=== PATIENT | male | born 1945 | race Caucasian/White ===

== ENCOUNTER 2018-01-08 14:44 | Emergency (ER) | payer MEDICARE, BC ==
[2018-01-08] MEDS ORDERED: Levofloxacin 500 MG Tab PO ONE (14:45)
[2018-01-08] MEDS ORDERED: Albuterol/Ipratropium 3.0-0.5 MG/3 ML Neb Soln INH ONE (14:45)
[2018-01-08] MEDS ORDERED: Albuterol/Ipratropium 3.0-0.5 MG/3 ML Neb Soln NEB ONE (15:47)
[2018-01-08] MEDS ORDERED: methylPREDNISolone Sodium Succinate 40 MG/1 ML SDV IM ONE (16:31)
[2018-01-08] MEDS ORDERED: Levofloxacin 500 MG Tab ONE (16:45)
[2018-01-08] MEDS ORDERED: Albuterol/Ipratropium 3.0-0.5 MG/3 ML Neb Soln ONE (16:45)
--- NOTE | 2018-01-08 17:32 | EDM.PDOC ---
ED HPI GENERAL MEDICAL PROBLEM - General Chief Complaint: Respiratory Problem Stated Complaint: HARD TO BREATH,COLD [id number] Time Seen by Provider: 01/08/18 15:00 - History of Present Illness INITIAL COMMENTS - FREE TEXT/NARRATIVE: Richard is a 72-year-old man who comes in with a little over 1 week history of severe cough. He has been struggling with recurrent malignancies, as well as frequent bronchitis over the past few years. 8 days ago, he was seen at the local urgent care clinic, and was given a prescription for doxycycline for 7 days. He states that he really has not felt any better since taking this. He does tell me that he gets bronchitis fairly frequently and when he does, it becomes quite severe. He states that over the last 24 hours he has felt fairly short of breath, as well as some fevers and chills. - Related Data Allergies Allergy/AdvReac Type Severity Reaction Status Date / Time No Known Allergies Allergy Verified 01/08/18 14:57 Home Meds: Home Meds Acetaminophen [Tylenol] 650 mg PO ASDIRECTED PRN 01/08/18 [History] Albuterol/Ipratropium [DuoNeb 3.0-0.5 MG/3 ML] 3 ml NEB Q4H PRN #1 box 01/08/18 [Rx] Levofloxacin [Levaquin] 500 mg PO DAILY #7 tab 01/08/18 [Rx] Lisinopril 1 tab PO DAILY 01/08/18 [History] Methotrexate Sodium [Methotrexate] 5 tab PO ASDIRECTED 01/08/18 [History] Metoprolol Succinate [Toprol Xl] 75 mg PO DAILY 01/08/18 [History] Sertraline HCl 50 mg PO DAILY 01/08/18 [History] Social & Family History - Tobacco Use Smoking Status *Q: Never Smoker Second Hand Smoke Exposure: No ED ROS GENERAL - Review of Systems Review Of Systems: ROS reveals no pertinent complaints other than HPI. ED EXAM, GENERAL - Physical Exam Exam: See Below Free Text/Narrative:: General: Richard is a pleasant 72-year-old man in no acute distress. O2 sat slightly decreased at 93% on room air, but no other signs of respiratory distress, no tachypnea or accessory muscle use. Ears: Canals are patent, tympanic membranes appear normal Oropharynx: Clear, no exudates or petechia noted Neck: Supple, no lymphadenopathy Lungs: Significant expiratory wheezing bilaterally with some coarse breath sounds centrally PA and lateral chest x-ray does show possible small right lower and middle lobe pneumonia He was given a DuoNeb nebulizer treatment prior to his x-ray, this did help significantly with his symptoms. Nasopharyngeal swab for influenza A and B was negative Course - Vital Signs Last Recorded V/S: Last Vital Signs Temp 37.8 C 01/08/18 14:51 Pulse 105 H 01/08/18 15:54 Resp 20 01/08/18 14:51 BP 137/69 01/08/18 14:51 Pulse Ox 93 L 01/08/18 14:51 - Orders/Labs/Meds Meds: Medications Discontinued Medications Generic Name Dose Route Start Last Admin Trade Name Freq PRN Reason Stop Dose Admin Albuterol/Ipratropium 3 ml 01/08/18 15:47 01/08/18 15:56 Duoneb 3.0-0.5 Mg/3 Ml NEB 01/08/18 15:48 3 ml ONETIME ONE Administration Albuterol/Ipratropium Confirm 01/08/18 16:45 Duoneb 3.0-0.5 Mg/3 Ml Administered 01/08/18 16:46 Dose 9 ml .ROUTE .STK-MED ONE Albuterol/Ipratropium 9 ml 01/08/18 14:45 Duoneb 3.0-0.5 Mg/3 Ml INH 01/08/18 14:46 .STK-MED ONE Levofloxacin Confirm 01/08/18 16:45 Levaquin Administered 01/08/18 16:46 Dose 500 mg .ROUTE .STK-MED ONE Levofloxacin 500 mg 01/08/18 14:45 Levaquin PO 01/08/18 14:46 .STK-MED ONE Methylprednisolone Sodium Succinate 80 mg 01/08/18 16:31 01/08/18 16:40 Solu-Medrol IM 01/08/18 16:32 80 mg ONETIME ONE Administration Departure - Departure Time of Disposition: 17:30 Disposition: Home, Self-Care 01 Clinical Impression: Acute exacerbation of chronic bronchitis - Discharge Information Prescriptions: Albuterol/Ipratropium [DuoNeb 3.0-0.5 MG/3 ML] 3 ml NEB Q4H PRN #1 box PRN Reason: Dyspnea Levofloxacin [Levaquin] 500 mg PO DAILY #7 tab Instructions: Acute Bronchitis, Adult, [id number] Referrals: PCP,None [Primary Care Provider] - Forms: ED Department Discharge - Problem List & Annotations (1) Acute exacerbation of chronic bronchitis SNOMED Code(s): 359954062 Code(s): J20.9 - ACUTE BRONCHITIS, UNSPECIFIED; J42 - UNSPECIFIED CHRONIC BRONCHITIS Status: Acute Priority: High Annotation/Comment:: Just from his history, it sure does sound like Richard has chronic obstructive disease. I did discuss with him that he may want to bring this up with his primary physician, as there are at home breathing inhalers that could be had to prevent these exacerbations in the future. - Problem List Review Problem List Initiated/Reviewed/Updated: Yes - Assessment/Plan Plan: 1. Levaquin, 500 mg twice a day for 7 days 2. He received 80 mg of IM methylprednisolone 1 now here in the ER 3. We did arrange for him to have an at-home nebulizer treatment with DuoNeb's to be used every 4-6 hours as needed. He will follow up immediately in the ER or clinic if he worsens, or is not improving.
== END 2018-01-08 17:13 ==
LOC: DL.ED 14:44
DX: J20.9 Acute bronchitis, unspecified (principal); J42 Unspecified chronic bronchitis; Z79.899 Other long term (current) drug therapy
CPT/HCPCS: 71046; 87804; 94640; 96372; 99285; J2920; A9270-GY

== ENCOUNTER 2019-10-18 21:41 | Emergency (ER) | payer MEDICARE, BC ==
--- NOTE | 2019-10-19 02:00 | EDM.PDOC ---
ED HPI GENERAL MEDICAL PROBLEM - General Chief Complaint: Respiratory Problem Stated Complaint: DIFFICULTY BREATHING CONGESTED Time Seen by Provider: 10/19/19 01:30 Source of Information: Reports: Patient, RN - History of Present Illness INITIAL COMMENTS - FREE TEXT/NARRATIVE: 74-year-old male who presents to the ER with complaints of congestion and cough 5 days. Patient reports cough is productive with green sputum. He denies any fevers but admits to intermittent chills. Patient reports a history of lung cancer that has been treated with chemotherapy times 3. Patient also reports a history of pneumonia. He admits to mild shortness of breath with exertion. He denies any palpitations ,chest pain, leg swelling or cold at this time. Patient reports fatigue all day prior to ER visit. He has not tried anything for symptoms. He does not smoke. Treatments [facility]: Reports: Other (see below) Other Treatments [facility]: nasal washings - Related Data Allergies Allergy/AdvReac Type Severity Reaction Status Date / Time No Known Allergies Allergy Verified 10/18/19 22:41 Home Meds: Home Meds Acetaminophen [Tylenol] 650 mg PO ASDIRECTED PRN 01/08/18 [History] Albuterol/Ipratropium [DuoNeb 3.0-0.5 MG/3 ML] 3 ml NEB Q4H PRN #1 box 01/08/18 [Rx] Lisinopril 1 tab PO DAILY 01/08/18 [History] Methotrexate Sodium [Methotrexate] 5 tab PO ASDIRECTED 01/08/18 [History] Metoprolol Succinate [Toprol Xl] 75 mg PO DAILY 01/08/18 [History] Sertraline HCl 50 mg PO DAILY 01/08/18 [History] Past Medical History HEENT History: Reports: Hard of Hearing, Impaired Vision Other HEENT History: wears glasses Cardiovascular History: Reports: Hypertension Respiratory History: Reports: Other (See Below) Other Respiratory History: URI Gastrointestinal History: Reports: None Genitourinary History: Reports: None Musculoskeletal History: Reports: None Psychiatric History: Reports: Anxiety Oncologic (Cancer) History: Reports: Non-Hodgkin's Lymphoma Other Oncologic History: last chemo was in 2010 Dermatologic History: Reports: Eczema Social & Family History - Family History Family Medical History: Noncontributory - Tobacco Use Smoking Status *Q: Unknown Ever Smoked - Caffeine Use Caffeine Use: Reports: Soda - Recreational Drug Use Recreational Drug Use: No ED ROS GENERAL - Review of Systems Review Of Systems: Comprehensive ROS is negative, except as noted in HPI. ED EXAM, GENERAL - Physical Exam Exam: See Below General Appearance: Alert, No Apparent Distress Eye Exam: Bilateral Eye: PERRL Ears: Normal External Exam, Normal Canal, Hearing Grossly Normal, Normal TMs Nose: Normal Inspection, Normal Mucosa, No Blood Throat/Mouth: Normal Inspection, Normal Lips, Normal Teeth, Normal Gums, Normal Oropharynx, Normal Voice, No Airway Compromise Head: Atraumatic, Normocephalic Neck: Normal Inspection, Supple, Non-Tender, Full Range of Motion Respiratory/Chest: No Respiratory Distress, Lungs Clear, Normal Breath Sounds, No Accessory Muscle Use, Chest Non-Tender Cardiovascular: Normal Peripheral Pulses, Regular Rate, Rhythm, No Edema, No Gallop, No JVD, No Murmur, No Rub GI/Abdominal: Normal Bowel Sounds, Soft, Non-Tender, No Organomegaly, No Distention, No Abnormal Bruit, No Mass Extremities: Normal Inspection, Normal Range of Motion, Non-Tender, Normal Capillary Refill, No Pedal Edema Neurological: Alert, Oriented, CN II-XII Intact, Normal Cognition, Normal Gait, Normal Reflexes, No Motor/Sensory Deficits Psychiatric: Normal Affect, Normal Mood Skin Exam: Warm, Dry, Intact, Normal Color, No Rash Lymphatic: No Adenopathy Course - Vital Signs Last Recorded V/S: Last Vital Signs Temp 98.7 F 10/18/19 22:27 Pulse 94 10/18/19 22:27 Resp 16 10/18/19 22:27 BP 100/64 10/18/19 22:27 Pulse Ox 97 10/18/19 22:27 - Orders/Labs/Meds Labs: Laboratory Tests 10/19/19 10/19/19 Range/Units 01:57 01:57 WBC 5.2 (5.0-10.0) 10^3/uL RBC 3.47 L (4.6-6.2) 10^6/uL Hgb 10.9 L (14.0-18.0) g/dL Hct 33.9 L (40.0-54.0) % MCV 97.7 (80-100) fL MCH 31.4 (27.0-34.0) pg MCHC 32.2 L (33.0-35.0) g/dL Plt Count 135 L (150-450) 10^3/uL Sodium 134 L (135-145) mmol/L Potassium 4.3 (3.6-5.0) mmol/L Chloride 99 L (101-111) mmol/L Carbon Dioxide 25.0 (21.0-31.0) mmol/L Anion Gap 14.3 BUN 18 (7-18) mg/dL Creatinine 0.8 (0.6-1.3) mg/dL Est Cr Clr Drug Dosing 83.67 mL/min Estimated GFR (MDRD) > 60 BUN/Creatinine Ratio 22.50 Glucose 108 H (74-105) mg/dL Calcium 8.5 (8.4-10.2) mg/dl Total Bilirubin 1.8 H (0.2-1.0) mg/dL AST 16 (10-42) IU/L ALT 16 (10-60) IU/L Alkaline Phosphatase 52 (42-121) IU/L Total Protein 6.3 L (6.7-8.2) g/dl Albumin 4.4 (3.2-5.5) g/dl Globulin 1.9 Albumin/Globulin Ratio 2.32 - Radiology Interpretation Free Text/Narrative:: PROCEDURE INFORMATION: Exam: XR Chest, 2 Views Exam date and time: 10/19/2019 2:02 AM Age: 74 years old Clinical indication: Other: Coughing up green sputum TECHNIQUE: Imaging protocol: XR of the chest Views: 2 views. COMPARISON: CR Chest 2V 01/08/2018 4:05 PM FINDINGS: Lungs: Unremarkable. No consolidation. Pleural space: Unremarkable. No pleural effusion. No pneumothorax. Heart/Mediastinum: Unremarkable. No cardiomegaly. Bones/joints: Unremarkable. IMPRESSION: No acute findings. Stable chest compared with 01/08/2018. Thank you for allowing us to participate in the care of your patient. Dictated and Authenticated by: Raul Conley MD 10/19/2019 2:27 AM Central Time ([place] & [place]) - Re-Assessments/Exams Free Text/Narrative Re-Assessment/Exam: 74 year old male who presents to the ER with complains of SOB and fatigue. Reviewed his vitals signs, labs, medical records and chest xray results with patient. Encouraged him to push fluids and rest. Ibuprofen/tylenol prn. Departure - Departure Time of Disposition: 02:43 Disposition: Home, Self-Care 01 Condition: Good, Fair Clinical Impression: Cough - Discharge Information *PRESCRIPTION DRUG MONITORING PROGRAM REVIEWED*: No *COPY OF PRESCRIPTION DRUG MONITORING REPORT IN PATIENT KAMILA: No Instructions: Cough, Adult, [id number] Referrals: Basim Smith MD [Primary Care Provider] - Forms: ED Department Discharge Additional Instructions: follow up with PCP in the clinic Sepsis Event Note - Evaluation Sepsis Screening Result: No Definite Risk - Focused Exam Date Exam was Performed: 10/23/19 Time Exam was Performed: 00:04
[2019-10-19 02:26] LABS: ANION GAP 14.3; CHLORIDE,CL 99 mmol/L (101-111); SODIUM,NA 134 mmol/L (135-145)
== END 2019-10-19 03:03 | disposition home or self-care (01) ==
LOC: DL.ED 21:41
DX: R05 Cough (principal); R53.83 Other fatigue; R06.02 Shortness of breath; H91.90 Unspecified hearing loss, unspecified ear; H54.7 Unspecified visual loss; I10 Essential (primary) hypertension; F41.9 Anxiety disorder, unspecified; Z85.118 Personal history of other malignant neoplasm of bronchus and lung; Z79.899 Other long term (current) drug therapy; Z92.21 Personal history of antineoplastic chemotherapy; Z85.72 Personal history of non-Hodgkin lymphomas
CPT/HCPCS: 36415; 71046; 80053; 85027; 99285-25

== ENCOUNTER 2020-11-03 16:48 | Emergency (ER) | payer MEDICARE, BC ==
[2020-11-03] MEDS ORDERED: Lisinopril 10 MG Tab PO ONE (18:10)
[2020-11-03] MEDS ORDERED: Gentamicin 0.3% Ophth Soln 5 ML Bottle EYEBOTH ONE (18:11)
--- NOTE | 2020-11-05 10:20 | EDM.PDOC ---
Scribed by Juliet Ceja 11/05/20 1019 for Óscar Quiros MD ED HPI GENERAL MEDICAL PROBLEM - General Chief Complaint: Cardiovascular Problem Stated Complaint: high blood pressure/cancer patient Time Seen by Provider: 11/03/20 17:00 Source of Information: Reports: Patient, RN, RN Notes Reviewed History Limitations: Reports: No Limitations - History of Present Illness INITIAL COMMENTS - FREE TEXT/NARRATIVE: 75 y/o M c/o high blood pressure as well as eye irritation for 2 weeks. Pt states his doctor reduced his Lisinopril from 10mg to 5 mg a month ago because his bp was getting too low. The patient has no physical complaints except for irritation of both of his eyes which he states are mattered in the morning when he wakes up and weep constantly. Pt has other hx of non hodgkins lymphoma for 20 years and has recently restarted treatment. Denies taylor, blurry vision, cp, sob, abd pn, fever, cough, chills, drugs, etoh. - Related Data Allergies Allergy/AdvReac Type Severity Reaction Status Date / Time No Known Allergies Allergy Verified 11/03/20 17:00 Home Meds: Home Meds Acetaminophen [Tylenol] 650 mg PO ASDIRECTED PRN 01/08/18 [History] Lisinopril 5 mg PO DAILY 01/08/18 [History] Metoprolol Succinate [Toprol Xl] 75 mg PO DAILY 01/08/18 [History] Sertraline HCl 100 mg PO DAILY 01/08/18 [History] Pantoprazole Sodium [Protonix] 40 mg PO DAILY 11/03/20 [History] valACYclovir HCl [Valtrex] 500 mg PO DAILY 11/03/20 [History] Past Medical History HEENT History: Reports: Hard of Hearing, Impaired Vision Other HEENT History: wears glasses Cardiovascular History: Reports: Hypertension Respiratory History: Reports: Other (See Below) Other Respiratory History: URI Gastrointestinal History: Reports: None Genitourinary History: Reports: None Musculoskeletal History: Reports: None, Back Pain, Chronic Psychiatric History: Reports: Anxiety Oncologic (Cancer) History: Reports: Non-Hodgkin's Lymphoma Other Oncologic History: last chemo was in 2010 Dermatologic History: Reports: Eczema - Infectious Disease History Infectious Disease History: Reports: Chicken Pox, Mumps - Past Surgical History Musculoskeletal Surgical History: Reports: Knee Replacement Social & Family History - Family History Family Medical History: No Pertinent Family History - Tobacco Use Tobacco Use Status *Q: Never Tobacco User Second Hand Smoke Exposure: No - Caffeine Use Caffeine Use: Reports: Soda - Recreational Drug Use Recreational Drug Use: No ED ROS GENERAL - Review of Systems Review Of Systems: Comprehensive ROS is negative, except as noted in HPI. ED EXAM, GENERAL - Physical Exam Exam: See Below Exam Limited By: No Limitations General Appearance: Alert, WD/WN, No Apparent Distress Eye Exam: Bilateral Eye: Conjunctival Injection (with yellow mattering), PERRL Ears: Normal External Exam Nose: Normal Inspection Throat/Mouth: Normal Inspection, Normal Lips, Normal Teeth, Normal Gums, Normal Oropharynx, Normal Voice, No Airway Compromise Head: Atraumatic, Normocephalic Neck: Normal Inspection, Supple, Non-Tender, Full Range of Motion Respiratory/Chest: No Respiratory Distress, Lungs Clear, Normal Breath Sounds, No Accessory Muscle Use, Chest Non-Tender Cardiovascular: Regular Rate, Rhythm GI/Abdominal: Soft, Non-Tender (Male) Exam: Deferred Rectal (Males) Exam: Deferred Extremities: Normal Inspection, Normal Range of Motion, Non-Tender, Normal Capillary Refill, No Pedal Edema Neurological: Alert, Oriented, Normal Cognition Psychiatric: Normal Affect, Normal Mood Skin Exam: Warm Course - Vital Signs Last Recorded V/S: Last Vital Signs Temp 96.6 F L 11/03/20 16:53 Pulse 51 L 11/03/20 16:53 Resp 18 11/03/20 16:53 BP 145/77 H 11/03/20 18:36 Pulse Ox 99 11/03/20 16:53 - Orders/Labs/Meds Meds: Medications Discontinued Medications Generic Name Dose Route Start Last Admin Trade Name Freq PRN Reason Stop Dose Admin Gentamicin Sulfate 1 ml 11/03/20 18:11 11/03/20 18:35 Garamycin 0.3% Ophth Soln EYEBOTH 11/03/20 18:12 1 drop ONETIME ONE Administration Lisinopril 10 mg 11/03/20 18:10 11/03/20 18:36 Prinivil PO 11/03/20 18:11 Not Given ONETIME ONE Departure - Departure Time of Disposition: 18:26 Disposition: Home, Self-Care 01 Condition: Good Clinical Impression: Hypertension, uncontrolled Conjunctivitis Qualifiers: Conjunctivitis type: other mucopurulent Laterality: bilateral Qualified Code (s): H10.023 - Other mucopurulent conjunctivitis, bilateral - Discharge Information *PRESCRIPTION DRUG MONITORING PROGRAM REVIEWED*: Not Applicable *COPY OF PRESCRIPTION DRUG MONITORING REPORT IN PATIENT KAMILA: Not Applicable Instructions: Managing Your Hypertension Referrals: Wally Baca NP [Primary Care Provider] - Forms: ED Department Discharge Additional Instructions: Take Lisinopril 10mg as well as your other medications to manage your high blood pressure. Use the gentamicin antibiotic eye drops for your eye irritation. Follow up with your primary care physician in two weeks for both your high blood pressure and eye irritation. Sepsis Event Note (ED) - Evaluation Sepsis Screening Result: No Definite Risk I have read and agree with the documentation that has been completed regarding this visit. By signing this record, I attest that the documentation was completed in my physical presence and is an accurate record of the encounter.
== END 2020-11-03 18:40 | disposition home or self-care (01) ==
LOC: DL.ED 16:48
DX: H10.023 Other mucopurulent conjunctivitis, bilateral (principal); I10 Essential (primary) hypertension; Z79.899 Other long term (current) drug therapy
CPT/HCPCS: 99283; A9270

== ENCOUNTER 2021-07-13 15:06 | Emergency (ER) | payer MEDICARE, BC ==
--- NOTE | 2021-07-13 16:29 | EDM.PDOC ---
<Mayra Wilburn - Last Filed: 07/13/21 22:06> ED HPI GENERAL MEDICAL PROBLEM - General Chief Complaint: Respiratory Problem Stated Complaint: BAD COUGH / SNEEZING Time Seen by Provider: 07/13/21 16:29 - Related Data Allergies Allergy/AdvReac Type Severity Reaction Status Date / Time No Known Allergies Allergy Verified 07/13/21 16:21 Home Meds: Home Meds Acetaminophen [Tylenol] 650 mg PO ASDIRECTED PRN 01/08/18 [History] Lisinopril 5 mg PO DAILY 01/08/18 [History] Metoprolol Succinate [Toprol Xl] 75 mg PO DAILY 01/08/18 [History] Sertraline HCl 100 mg PO DAILY 01/08/18 [History] Pantoprazole Sodium [Protonix] 40 mg PO DAILY 11/03/20 [History] valACYclovir HCl [Valtrex] 500 mg PO DAILY 11/03/20 [History] Departure - Departure Time of Disposition: 22:06 Disposition: Home, Self-Care 01 Condition: Fair Clinical Impression: COVID - Discharge Information *PRESCRIPTION DRUG MONITORING PROGRAM REVIEWED*: Not Applicable *COPY OF PRESCRIPTION DRUG MONITORING REPORT IN PATIENT KAMILA: Not Applicable Instructions: COVID-19 Frequently Asked Questions Referrals: PCP,None [Primary Care Provider] - Forms: ED Department Discharge Additional Instructions: Follow up with your primary care provider in 7-10 days, or sooner if needed <Lina Nunne - Last Filed: 07/25/21 10:53> ED HPI GENERAL MEDICAL PROBLEM - General Source of Information: Reports: Patient, RN, RN Notes Reviewed History Limitations: Reports: No Limitations - History of Present Illness INITIAL COMMENTS - FREE TEXT/NARRATIVE: Delio is a 75 y/o male who presents to the ED via personal vehicle for complaints of shaking chills, general malaise, cough, sinus congestion, and shortness of breath. The patient states his symptoms began approximately one week ago and have progressed in severity over that time. He notes he is fully vaccinated for COVID, including a recent booster, however his (who is also vaccinated) t ested positive for COVID earlier today. He denies sore throat, chest pain, palpitations, abdominal pain, nausea, vomiting, or diarrhea. He denies tobacco, alcohol, or recreational drug use. Generalized Pain Score (Numeric/FACES): 5 Past Medical History HEENT History: Reports: Hard of Hearing, Impaired Vision Other HEENT History: wears glasses Cardiovascular History: Reports: Hypertension Respiratory History: Reports: Other (See Below) Other Respiratory History: URI Gastrointestinal History: Reports: None Genitourinary History: Reports: None Musculoskeletal History: Reports: Back Pain, Chronic Neurological History: Reports: None Psychiatric History: Reports: Anxiety Endocrine/Metabolic History: Reports: None Hematologic History: Reports: None Immunologic History: Reports: None Oncologic (Cancer) History: Reports: Non-Hodgkin's Lymphoma Other Oncologic History: last chemo was in 2010 Dermatologic History: Reports: Eczema - Infectious Disease History Infectious Disease History: Reports: Chicken Pox, Mumps - Past Surgical History Head Surgeries/Procedures: Reports: None Musculoskeletal Surgical History: Reports: Knee Replacement Social & Family History - Family History Family Medical History: No Pertinent Family History - Tobacco Use Tobacco Use Status *Q: Never Tobacco User Second Hand Smoke Exposure: No - Caffeine Use Caffeine Use: Reports: Coffee - Recreational Drug Use Recreational Drug Use: No ED ROS GENERAL - Review of Systems Review Of Systems: Comprehensive ROS is negative, except as noted in HPI. ED EXAM, GENERAL - Physical Exam Exam: See Below Exam Limited By: No Limitations General Appearance: Alert, WD/WN, Other (Ill-appearing elderly male) Eye Exam: Bilateral Eye: EOMI, Normal Inspection, PERRL (2mm) Ears: Normal External Exam, Normal Canal, Hearing Grossly Normal, Normal TMs Ear Exam: Bilateral Ear: Auricle Normal, Canal Normal, TM normal Nose: Normal Inspection, Normal Mucosa, No Blood Throat/Mouth: Normal Voice, No Airway Compromise. No: Normal Lips (Dry, cracked), Normal Oropharynx (Dry mucous membranes) Head: Atraumatic, Normocephalic Neck: Normal Inspection, Supple, Non-Tender, Full Range of Motion. No: Lymphadenopathy (L), Lymphadenopathy (R) Respiratory/Chest: No Respiratory Distress, Lungs Clear, No Accessory Muscle Use, Chest Non-Tender, Decreased Breath Sounds. No: Crackles, Rales, Rhonchi, Wheezing, Stridor Cardiovascular: Normal Peripheral Pulses, Regular Rate, Rhythm, No Edema, No Gallop, No JVD, No Murmur, No Rub Peripheral Pulses: 2+: Radial (L), Radial (R) GI/Abdominal: Normal Bowel Sounds, Soft, Non-Tender, No Distention, No Abnormal Bruit, No Mass (Male) Exam: Deferred Rectal (Males) Exam: Deferred Back Exam: Normal Inspection Extremities: Normal Inspection, Normal Range of Motion, Non-Tender, No Pedal Edema, Normal Capillary Refill Neurological: Alert, Oriented, CN II-XII Intact, Normal Cognition, Normal Gait, No Motor/Sensory Deficits Psychiatric: Normal Affect, Tearful Skin Exam: Warm, Dry, Intact, No Rash, Pallor. No: Cyanosis, Jaundice, Mottled Lymphatic: No Adenopathy Course - Vital Signs Last Recorded V/S: Last Vital Signs Temp 98.7 F 07/13/21 21:11 Pulse 91 07/13/21 22:00 Resp 20 07/13/21 22:00 BP 149/67 H 07/13/21 22:00 Pulse Ox 94 L 07/13/21 22:00 - Orders/Labs/Meds Labs: Laboratory Tests 07/13/21 07/13/21 07/13/21 Range/Units 16:27 18:04 18:04 WBC 2.4 L (5.0-10.0) 10^3/uL RBC 4.73 (4.6-6.2) 10^6/uL Hgb 12.6 L D (14.0-18.0) g/dL Hct 38.7 L (40.0-54.0) % MCV 81.8 D (80-100) fL MCH 26.6 L (27.0-34.0) pg MCHC 32.6 L (33.0-35.0) g/dL Plt Count 59 L D (150-450) 10^3/uL Neut % (Auto) 72.8 (42.2-75.2) % Lymph % (Auto) 14.0 L (20.5-50.1) % Alcorn % (Auto) 12.8 H (2-8) % Eos % (Auto) 0.0 L (1.0-3.0) % Baso % (Auto) 0.4 (0.0-1.0) % D-Dimer, Quantitative < 100 (0-400) ng/mL Sodium (136-145) mmol/L Potassium (3.5-5.1) mmol/L Chloride (98-107) mmol/L Carbon Dioxide (21-32) mmol/L Anion Gap (7-13) mEq/L BUN (7-18) mg/dL Creatinine (0.70-1.30) mg/dL Est Cr Clr Drug Dosing mL/min Estimated GFR (MDRD) BUN/Creatinine Ratio (No establ ref range) Glucose (70-99) mg/dL Calcium (8.5-10.1) mg/dL Ferritin (26-388) mg/mL Total Bilirubin (0.2-1.0) mg/dL AST (15-37) U/L ALT (16-63) U/L Alkaline Phosphatase (46-116) U/L Total Protein (6.4-8.2) g/dL Albumin (3.4-5.0) g/dL Globulin Albumin/Globulin Ratio SARS-CoV-2 RNA (MUSA) Positive H (NEGATIVE) 07/13/21 07/13/21 Range/Units 18:04 18:04 WBC (5.0-10.0) 10^3/uL RBC (4.6-6.2) 10^6/uL Hgb (14.0-18.0) g/dL Hct (40.0-54.0) % MCV (80-100) fL MCH (27.0-34.0) pg MCHC (33.0-35.0) g/dL Plt Count (150-450) 10^3/uL Neut % (Auto) (42.2-75.2) % Lymph % (Auto) (20.5-50.1) % Alcorn % (Auto) (2-8) % Eos % (Auto) (1.0-3.0) % Baso % (Auto) (0.0-1.0) % D-Dimer, Quantitative (0-400) ng/mL Sodium 134 L (136-145) mmol/L Potassium 4.2 (3.5-5.1) mmol/L Chloride 97 L (98-107) mmol/L Carbon Dioxide 29 (21-32) mmol/L Anion Gap 12.2 (7-13) mEq/L BUN 14 (7-18) mg/dL Creatinine 0.90 (0.70-1.30) mg/dL Est Cr Clr Drug Dosing 75.44 mL/min Estimated GFR (MDRD) > 60 BUN/Creatinine Ratio 15.6 (No establ ref range) Glucose 99 (70-99) mg/dL Calcium 8.0 L (8.5-10.1) mg/dL Ferritin 133 (26-388) mg/mL Total Bilirubin 0.7 (0.2-1.0) mg/dL AST 18 (15-37) U/L ALT 22 (16-63) U/L Alkaline Phosphatase 52 (46-116) U/L Total Protein 6.2 L (6.4-8.2) g/dL Albumin 3.8 (3.4-5.0) g/dL Globulin 2.4 Albumin/Globulin Ratio 1.6 SARS-CoV-2 RNA (MUSA) (NEGATIVE) Meds: Medications Discontinued Medications Generic Name Dose Route Start Last Admin Trade Name Freq PRN Reason Stop Dose Admin Benzonatate 100 mg 07/13/21 19:28 07/13/21 20:46 Benzonatate 100 Mg Cap PO 07/13/21 19:29 100 mg ONETIME ONE Administration Dexamethasone 6 mg 07/13/21 19:27 07/13/21 20:38 Dexamethasone 4 Mg/Ml Sdv IVPUSH 07/13/21 19:28 6 mg ONETIME ONE Administration Diphenhydramine HCl 50 mg 07/13/21 19:28 Diphenhydramine 50 Mg/Ml Sdv IVPUSH ONETIME PRN hypersensitivity reaction Famotidine 20 mg 07/13/21 19:28 Famotidine 20 Mg/2 Ml Sdv IVPUSH ONETIME PRN hypersensitivity reaction CASIRIVIMAB/IMDEVIMAB 10 ml/ 110 mls @ 220 mls/hr 07/13/21 19:28 07/13/21 20: 38 Sodium Chloride IV 07/13/21 19:57 220 mls/hr ONETIME ONE Administration Methylprednisolone Sodium Succinate 125 mg 07/13/21 19:28 Methylprednisolone Sodium Succinate 125 Mg/2 Ml Sdv IVPUSH ONETIME PRN hypersensitivity reaction Sodium Chloride 30 ml 07/13/21 19:30 07/13/21 21:02 Sodium Chloride 0.9% 10 Ml Syringe FLUSH 30 ml ASDIRECTED ESTEFANY Administration - Radiology Interpretation Free Text/Narrative:: [facility] Final Radiology Report Call: [phone] assistance Online chat: [email or web address] Name: DELIO JOSE Age: 75Years M Date: 07/13/2021 SSN: -- : [id number] Study: CR CHEST 1V FRONTAL Requesting Physician: Lina Nunn Images: 1 Addl Studies: Provided Clinical History: Shortness of breath Contrast: Contrast Medium: Contrast Amount: Contrast Method: CONFIDENTIALITY STATEMENT This report is intended only for use by the referring physician, and only in accordance with law. If you received this in error, call [phone]. Page 1 of 1 PROCEDURE INFORMATION: Exam: XR Chest Exam date and time: 07/13/2021 4:37 PM Age: 75 years old Clinical indication: Shortness of breath TECHNIQUE: Imaging protocol: XR of the chest. Views: 1 view. Total images: 1 COMPARISON: CR Chest 2V 10/19/2019 2:02 AM FINDINGS: Lungs: Unremarkable. No consolidation. Pleural spaces: Unremarkable. No pleural effusion. No pneumothorax. Heart/Mediastinum: Unremarkable. No cardiomegaly. Bones/joints: Unremarkable. IMPRESSION: No acute findings. Thank you for allowing us to participate in the care of your patient. Dictated and Authenticated by: Basim Hauser MD 07/13/2021 5:07 PM Central Time ([place] & [place]) - Re-Assessments/Exams Free Text/Narrative Re-Assessment/Exam: 07/13/21 Findings of examination, lab work, and imaging reviewed with patient. Given neutropenia and comorbidities, patient meets qualifications for monoclonal antibody therapy; education provided and patient is agreeable to receive this treatment. Will administer here prior to discharge from ED. Care of patient transferred to Dr. Wilburn at 1900.
--- NOTE | 2021-07-13 17:08 | CR ---
PROCEDURE INFORMATION: Exam: XR Chest Exam date and time: 07/13/2021 4:37 PM Age: 75 years old Clinical indication: Shortness of breath TECHNIQUE: Imaging protocol: XR of the chest. Views: 1 view. Total images: 1 COMPARISON: CR Chest 2V 10/19/2019 2:02 AM FINDINGS: Lungs: Unremarkable. No consolidation. Pleural spaces: Unremarkable. No pleural effusion. No pneumothorax. Heart/Mediastinum: Unremarkable. No cardiomegaly. Bones/joints: Unremarkable. IMPRESSION: No acute findings.
[2021-07-13 18:46] LABS: ANION GAP 12.2 mEq/L (7-13); CHLORIDE,CL 97 mmol/L (98-107); SODIUM,NA 134 mmol/L (136-145)
[2021-07-13] MEDS ORDERED: Dexamethasone 4 MG/ML SDV IVPUSH ONE (19:27)
[2021-07-13] MEDS ORDERED: diphenhydrAMINE 50 MG/ML SDV IVPUSH PRN (19:28)
[2021-07-13] MEDS ORDERED: methylPREDNISolone Sodium Succinate 125 MG/2 ML SDV IVPUSH PRN (19:28)
[2021-07-13] MEDS ORDERED: Famotidine 20 MG/2 ML SDV IVPUSH PRN (19:28)
[2021-07-13] MEDS ORDERED: Benzonatate 100 MG Cap PO ONE (19:28)
[2021-07-13] MEDS ORDERED: Sodium Chloride 0.9% 10 ML Syringe FLUSH SCH (19:30)
== END 2021-07-13 23:00 | disposition home or self-care (01) ==
LOC: DL.ED 15:06
DX: U07.1 COVID-19 (principal); I10 Essential (primary) hypertension
CPT/HCPCS: 36415; 71045; 80053; 82728; 85025; 85379; 96374; 99283; 99285; A9270; J1100; M0243; Q0243; U0002

== ENCOUNTER 2021-08-07 13:21 | Emergency (ER) | payer MEDICARE, BC ==
--- NOTE | 2021-08-07 13:58 | EDM.PDOC ---
ED HPI GENERAL MEDICAL PROBLEM - General Chief Complaint: Respiratory Problem Stated Complaint: HAD COVID 17 DAYS / NOT GETTING WELL Time Seen by Provider: 08/07/21 13:50 Source of Information: Reports: Patient, RN, RN Notes Reviewed History Limitations: Reports: No Limitations - History of Present Illness INITIAL COMMENTS - FREE TEXT/NARRATIVE: Richard is a 76 y/o male who presents to the ED via personal vehicle with complaints of productive cough, weakness, and shortness of breath with exertion. The patient was diagnosed with COVID pneumonia approximately four weeks ago following similar symptoms that presented a week prior. He received monoclonal antibodies the same day he tested positive. He states his symptoms have not progressed, but he is concerned they have not improved. He denies fever, shaking chills, vision changes, dizziness, chest pain/pressure, palpitations, abdominal pain, nausea, vomiting, or diarrhea. He has taken transient doses of Tylenol for his symptoms. He denies tobacco, alcohol, or recreational drug use. - Related Data Allergies Allergy/AdvReac Type Severity Reaction Status Date / Time No Known Allergies Allergy Verified 08/07/21 13:34 Home Meds: Home Meds Acetaminophen [Tylenol] 650 mg PO ASDIRECTED PRN 01/08/18 [History] Lisinopril 5 mg PO DAILY 01/08/18 [History] Metoprolol Succinate [Toprol Xl] 75 mg PO DAILY 01/08/18 [History] Sertraline HCl 100 mg PO DAILY 01/08/18 [History] Pantoprazole Sodium [Protonix] 40 mg PO DAILY 11/03/20 [History] valACYclovir HCl [Valtrex] 500 mg PO DAILY 11/03/20 [History] Past Medical History HEENT History: Reports: Hard of Hearing, Impaired Vision Other HEENT History: wears glasses Cardiovascular History: Reports: Hypertension Respiratory History: Reports: Other (See Below) Other Respiratory History: URI Gastrointestinal History: Reports: None Genitourinary History: Reports: None Musculoskeletal History: Reports: Back Pain, Chronic Neurological History: Reports: None Psychiatric History: Reports: Anxiety Endocrine/Metabolic History: Reports: None Hematologic History: Reports: None Immunologic History: Reports: None Oncologic (Cancer) History: Reports: Non-Hodgkin's Lymphoma Other Oncologic History: last chemo was in 2010 Dermatologic History: Reports: Eczema - Infectious Disease History Infectious Disease History: Reports: Chicken Pox, Mumps - Past Surgical History Head Surgeries/Procedures: Reports: None Musculoskeletal Surgical History: Reports: Knee Replacement Social & Family History - Family History Family Medical History: No Pertinent Family History - Caffeine Use Caffeine Use: Reports: Coffee ED ROS GENERAL - Review of Systems Review Of Systems: Comprehensive ROS is negative, except as noted in HPI. ED EXAM, GENERAL - Physical Exam Exam: See Below Exam Limited By: No Limitations General Appearance: Alert, No Apparent Distress Eye Exam: Bilateral Eye: EOMI, Normal Inspection, PERRL (3mm) Ears: Normal External Exam, Normal Canal, Hearing Grossly Normal, Normal TMs Ear Exam: Bilateral Ear: Auricle Normal, Canal Normal, TM normal Nose: Normal Inspection, Normal Mucosa, No Blood Throat/Mouth: Normal Inspection, Normal Oropharynx, Normal Voice, No Airway Compromise Head: Atraumatic, Normocephalic Neck: Normal Inspection, Supple, Non-Tender, Full Range of Motion Respiratory/Chest: No Respiratory Distress, No Accessory Muscle Use, Chest Non- Tender, Decreased Breath Sounds, Rhonchi (Bilaterally), Other (Productive cough) Cardiovascular: Normal Peripheral Pulses, Regular Rate, Rhythm, No Edema, No Gallop, No JVD, No Murmur, No Rub Peripheral Pulses: 2+: Radial (L), Radial (R) GI/Abdominal: Normal Bowel Sounds, Soft, Non-Tender, No Distention, No Abnormal Bruit, No Mass, Pelvis Stable (Male) Exam: Deferred Rectal (Males) Exam: Deferred Back Exam: Normal Inspection, Full Range of Motion Extremities: Normal Inspection, Normal Range of Motion, Non-Tender, No Pedal Edema, Normal Capillary Refill Neurological: Alert, Oriented, CN II-XII Intact, Normal Cognition, Normal Gait, No Motor/Sensory Deficits Psychiatric: Normal Affect, Normal Mood Skin Exam: Warm, Dry, Intact, No Rash, Pallor. No: Cyanosis, Jaundice, Mottled Course - Vital Signs Last Recorded V/S: Last Vital Signs Temp 95.9 F L 08/07/21 13:34 Pulse 100 08/07/21 13:34 Resp 20 08/07/21 13:34 BP 111/84 08/07/21 13:34 Pulse Ox 98 08/07/21 13:34 - Orders/Labs/Meds Labs: Laboratory Tests 10/14/21 10/14/21 10/14/21 Range/Units 14:06 14:06 14:06 WBC 4.3 L (5.0-10.0) 10^3/uL RBC 4.83 (4.6-6.2) 10^6/uL Hgb 13.1 L (14.0-18.0) g/dL Hct 40.2 (40.0-54.0) % MCV 83.2 (80-100) fL MCH 27.1 (27.0-34.0) pg MCHC 32.6 L (33.0-35.0) g/dL Plt Count 158 D (150-450) 10^3/uL Neut % (Auto) 64.1 (42.2-75.2) % Lymph % (Auto) 13.9 L (20.5-50.1) % [place] % (Auto) 18.3 H (2-8) % Eos % (Auto) 2.8 (1.0-3.0) % Baso % (Auto) 0.9 (0.0-1.0) % D-Dimer, Quantitative (0-400) ng/mL Sodium 139 (136-145) mmol/L Potassium 4.7 (3.5-5.1) mmol/L Chloride 101 (98-107) mmol/L Carbon Dioxide 33 H (21-32) mmol/L Anion Gap 9.7 (7-13) mEq/L BUN 15 (7-18) mg/dL Creatinine 1.09 (0.70-1.30) mg/dL Est Cr Clr Drug Dosing TNP Estimated GFR (MDRD) > 60 BUN/Creatinine Ratio 13.8 (No establ ref range) Glucose 117 H (70-99) mg/dL Lactic Acid 1.4 (0.4-2.0) mmol/L Calcium 9.1 (8.5-10.1) mg/dL Total Bilirubin 0.7 (0.2-1.0) mg/dL AST 15 (15-37) U/L ALT 20 (16-63) U/L Alkaline Phosphatase 60 (46-116) U/L C-Reactive Protein 9.8 H (0.0-0.9) mg/dL Total Protein 6.4 (6.4-8.2) g/dL Albumin 3.4 (3.4-5.0) g/dL Globulin 3.0 Albumin/Globulin Ratio 1.1 08/07/21 Range/Units 14:06 WBC (5.0-10.0) 10^3/uL RBC (4.6-6.2) 10^6/uL Hgb (14.0-18.0) g/dL Hct (40.0-54.0) % MCV (80-100) fL MCH (27.0-34.0) pg MCHC (33.0-35.0) g/dL Plt Count (150-450) 10^3/uL Neut % (Auto) (42.2-75.2) % Lymph % (Auto) (20.5-50.1) % [place] % (Auto) (2-8) % Eos % (Auto) (1.0-3.0) % Baso % (Auto) (0.0-1.0) % D-Dimer, Quantitative 339 (0-400) ng/mL Sodium (136-145) mmol/L Potassium (3.5-5.1) mmol/L Chloride (98-107) mmol/L Carbon Dioxide (21-32) mmol/L Anion Gap (7-13) mEq/L BUN (7-18) mg/dL Creatinine (0.70-1.30) mg/dL Est Cr Clr Drug Dosing Estimated GFR (MDRD) BUN/Creatinine Ratio (No establ ref range) Glucose (70-99) mg/dL Lactic Acid (0.4-2.0) mmol/L Calcium (8.5-10.1) mg/dL Total Bilirubin (0.2-1.0) mg/dL AST (15-37) U/L ALT (16-63) U/L Alkaline Phosphatase (46-116) U/L C-Reactive Protein (0.0-0.9) mg/dL Total Protein (6.4-8.2) g/dL Albumin (3.4-5.0) g/dL Globulin Albumin/Globulin Ratio - Re-Assessments/Exams Free Text/Narrative Re-Assessment/Exam: 08/07/21 Findings of examination, lab work, and imaging reviewed with patient. Will treat pneumonia with doxycycline. Supportive cares for SOB discussed. Patient instructed to follow up with primary care provider in 5-7 days regarding todays visit. Red flag signs and symptoms which would warrant immediate reevaluation reviewed. Patient verbalized understanding and agreement with the plan of care. Departure - Departure Time of Disposition: 16:24 Disposition: Home, Self-Care 01 Condition: Fair Clinical Impression: Pneumonia Qualifiers: Pneumonia type: due to unspecified organism Laterality: right Lung location: lower lobe of lung Qualified Code(s): J18.9 - Pneumonia, unspecified organism Acute bronchitis Qualifiers: Bronchitis organism: unspecified organism Qualified Code(s): J20.9 - Acute bronchitis, unspecified - Discharge Information *PRESCRIPTION DRUG MONITORING PROGRAM REVIEWED*: Not Applicable *COPY OF PRESCRIPTION DRUG MONITORING REPORT IN PATIENT KAMILA: Not Applicable Instructions: Community-Acquired Pneumonia, Adult Forms: ED Department Discharge Additional Instructions: Rx: doxycycline Rx: prednisone Rx: Chaim Curry 1.) Take all of your antibiotic until gone, even as symptoms improve. 2.) Drink plenty of water to stay hydrated. 3.) Eat small, snack-sized meals to avoid nausea. 4.) Follow up with your primary care provider in 5-7 days, or sooner should symptoms persist or worsen. Sepsis Event Note (ED) - Evaluation Sepsis Screening Result: No Definite Risk
[2021-08-07 14:46] LABS: ANION GAP 9.7 mEq/L (7-13); CHLORIDE,CL 101 mmol/L (98-107); SODIUM,NA 139 mmol/L (136-145)
--- NOTE | 2021-08-07 15:49 | CR ---
EXAMINATION: Chest 1V Frontal SEX: Male AGE: 76 years CLINICAL HISTORY: 76-year-old male with persistent cough and shortness of breath. Interpretation: *Subtle new nodular density, lung pagan, suggested since comparison exam 19 October 2019 and more recent CXR 13 July 2021 when he was "neutropenic". Recommend considering unenhanced CT chest. Chronic asymmetric elevation right hemidiaphragm. Normal cardiac silhouette. No vascular congestion cephalization of flow, alveolar edema or dependent pleural effusion. Chronic hypertrophic arthritic changes dorsal spine. Curvilinear atheromatous calcifications arch of the ectatic aorta. No alveolar infiltrate, air bronchograms or peripheral "groundglass" interstitial lung densities typical COVID pneumonia. No pneumothorax or pneumomediastinum.
--- NOTE | 2021-08-07 16:52 | CT ---
EXAMINATION: Chest wo Cont SEX: Male AGE: 76 years CLINICAL HISTORY: 76-year-old male diagnosed with COVID19 infection 13 July 2021 who presents now with persistent severe cough and shortness of breath. Nodular densities on CXR. Scan technique: Volume acquisition of data emergency unenhanced CT scan of the past (bony thorax, lungs and mediastinum) obtained with the patient lying supine on the Siemens multi slice scanner [facility]. All data archived in the PACS system for storage, reformatting axial/sagittal/coronal planes and study. Interpretation: Abnormal. 1. 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 2. Note: *Asymmetric dense alveolar pneumonic like consolidation with air bronchograms identified in the anterior segment of the right lower lobe. Aspiration? Bacterial pneumonia? 3. Chronic asymmetric elevation right hemidiaphragm unchanged. 4. Coronary artery calcifications but normal cardiac silhouette (size and configuration). No pericardial or pleural effusions. No pulmonary vascular congestion, cephalization of vascular flow or alveolar edema. 5. No malignant-appearing lung mass lesion or significant hilar/mediastinal lymphadenopathy (asymmetric prominent pulmonary artery segment on the right). Calcifications normal caliber ectatic thoracic aorta. 6. No cystic or bullous emphysematous lesions. No pneumothorax or pneumomediastinum. Midline tracheal bronchial airway unremarkable. 7. Distended gallbladder RUQ. No stones. No biliary duct dilatation. Pancreas unremarkable.
== END 2021-08-07 16:41 | disposition home or self-care (01) ==
LOC: DL.ED 13:21
DX: J20.9 Acute bronchitis, unspecified (principal); J18.9 Pneumonia, unspecified organism; I10 Essential (primary) hypertension; Z79.899 Other long term (current) drug therapy; Z86.16 Personal history of COVID-19
CPT/HCPCS: 36415; 71045; 71250; 80053; 83605; 85025; 85379; 86140; 99285-25

== ENCOUNTER 2021-08-27 10:38 | Emergency (ER) | payer MEDICARE, BC ==
[2021-08-27] MEDS ORDERED: Sodium Chloride 0.9% 10 ML Syringe FLUSH PRN (10:45)
--- NOTE | 2021-08-27 11:12 | EDM.PDOC ---
ED HPI GENERAL MEDICAL PROBLEM - General Chief Complaint: Respiratory Problem Stated Complaint: FEELING ILL FROM BRONCHITIS, HAD COVID Time Seen by Provider: 08/27/21 11:07 Source of Information: Reports: Patient History Limitations: Reports: No Limitations - History of Present Illness INITIAL COMMENTS - FREE TEXT/NARRATIVE: 76 y/o M c/o cough and sob for several weeks. Pt states he was diagnosed with COVID in mid jun this year and has not yet recovered. Several weeks ago pt was seen here for PNA and was sent home on antibiotics which he took as prescribed. He states even before his PNA diagnosis he was coughing up green sputum which has not changed since his antibiotic treatment. He also reports sinus tenderness for several weeks and feeling of plugged ears. He denies fever, chills, drugs, etoh, OTC meds, cp, abd pn, recent trauma, extremity pn, weakness, constipation, diff voiding - Related Data Allergies Allergy/AdvReac Type Severity Reaction Status Date / Time No Known Allergies Allergy Verified 08/27/21 11:06 Home Meds: Home Meds Acetaminophen [Tylenol] 650 mg PO ASDIRECTED PRN 01/08/18 [History] Lisinopril 5 mg PO DAILY 01/08/18 [History] Metoprolol Succinate [Toprol Xl] 75 mg PO DAILY 01/08/18 [History] Sertraline HCl 100 mg PO DAILY 01/08/18 [History] Pantoprazole Sodium [Protonix] 40 mg PO DAILY 11/03/20 [History] valACYclovir HCl [Valtrex] 500 mg PO DAILY 11/03/20 [History] Past Medical History HEENT History: Reports: Hard of Hearing, Impaired Vision Other HEENT History: wears glasses Cardiovascular History: Reports: Hypertension Respiratory History: Reports: Other (See Below) Other Respiratory History: URI Gastrointestinal History: Reports: None Genitourinary History: Reports: None Musculoskeletal History: Reports: Back Pain, Chronic Neurological History: Reports: None Psychiatric History: Reports: Anxiety Endocrine/Metabolic History: Reports: None Hematologic History: Reports: None Immunologic History: Reports: None 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 TM light reflex diminshed on R side. Normal TM L side) Nose: Nasal Swelling Throat/Mouth: Normal Inspection, Normal Lips, Normal Teeth, Normal Gums, Normal Oropharynx, Normal Voice, No Airway Compromise Head: Normocephalic, Other (scarring over R temporal bone from farming accident in ) Neck: Supple, Non-Tender Respiratory/Chest: No Respiratory Distress, Rhonchi (R lower lobes otherwise clear lung sounds) Cardiovascular: Normal Peripheral Pulses, Regular Rate, Rhythm GI/Abdominal: Soft, Non-Tender (Male) Exam: Deferred Rectal (Males) Exam: Deferred Back Exam: Normal Inspection, Full Range of Motion Extremities: Normal Inspection, Normal Range of Motion, Non-Tender, Normal Capillary Refill, No Pedal Edema Neurological: Alert, Oriented, CN II-XII Intact, Normal Cognition, Normal Gait, Normal Reflexes, No Motor/Sensory Deficits Psychiatric: Normal Affect, Normal Mood Skin Exam: Warm, Dry, Intact Course - Vital Signs Last Recorded V/S: Last Vital Signs Temp 98.1 F 08/27/21 11:08 Pulse 73 08/27/21 11:08 Resp 18 08/27/21 11:08 BP 149/84 H 08/27/21 11:08 Pulse Ox 94 L 08/27/21 11:08 - Orders/Labs/Meds Orders: Active Orders 24 hr Category Date Time Status Sodium Chloride 0.9% [Saline Flush] Med 08/27/21 10:45 Active 10 ml FLUSH ASDIRECTED PRN Peripheral IV Insertion Adult [OM.PC] Routine Oth 08/27/21 10:45 Ordered Medication Orders Sodium Chloride (Sodium Chloride 0.9% 10 Ml Syringe) 10 ml FLUSH ASDIRECTED PRN PRN Reason: Keep Vein Open Last Admin: 08/27/21 10:52 Dose: 10 ml Documented by: TOR Labs: Laboratory Tests 08/27/21 08/27/21 08/27/21 Range/Units 10:50 11:03 11:03 WBC 4.2 L (5.0-10.0) 10^3/uL RBC 4.54 L (4.6-6.2) 10^6/uL Hgb 12.6 L (14.0-18.0) g/dL Hct 38.9 L (40.0-54.0) % MCV 85.7 (80-100) fL MCH 27.8 (27.0-34.0) pg MCHC 32.4 L (33.0-35.0) g/dL Plt Count 112 L (150-450) 10^3/uL Neut % (Auto) 64.9 (42.2-75.2) % Lymph % (Auto) 15.8 L (20.5-50.1) % Callahan % (Auto) 14.6 H (2-8) % Eos % (Auto) 3.3 H (1.0-3.0) % Baso % (Auto) 1.4 H (0.0-1.0) % D-Dimer, Quantitative (0-400) ng/mL Sodium 138 (136-145) mmol/L Potassium 3.9 (3.5-5.1) mmol/L Chloride 100 (98-107) mmol/L Carbon Dioxide 29 (21-32) mmol/L Anion Gap 12.9 (7-13) mEq/L BUN 12 (7-18) mg/dL Creatinine 0.87 (0.70-1.30) mg/dL Est Cr Clr Drug Dosing 76.81 mL/min Estimated GFR (MDRD) > 60 BUN/Creatinine Ratio 13.8 (No establ ref range) Glucose 149 H (70-99) mg/dL Lactic Acid (0.4-2.0) mmol/L Calcium 8.7 (8.5-10.1) mg/dL Phosphorus 4.1 (2.6-4.7) mg/dL Magnesium 2.1 (1.8-2.4) mg/dL Total Bilirubin 0.7 (0.2-1.0) mg/dL AST 12 L (15-37) U/L ALT 16 (16-63) U/L Alkaline Phosphatase 55 (46-116) U/L C-Reactive Protein 12.1 H (0.0-0.9) mg/dL B-Natriuretic Peptide 28 (0-100) pg/ml Total Protein 6.3 L (6.4-8.2) g/dL Albumin 3.5 (3.4-5.0) g/dL Globulin 2.8 Albumin/Globulin Ratio 1.2 SARS-CoV-2 RNA (MUSA) Positive H (NEGATIVE) 08/27/21 08/27/21 Range/Units 11:03 11:03 WBC (5.0-10.0) 10^3/uL RBC (4.6-6.2) 10^6/uL Hgb (14.0-18.0) g/dL Hct (40.0-54.0) % MCV (80-100) fL MCH (27.0-34.0) pg MCHC (33.0-35.0) g/dL Plt Count (150-450) 10^3/uL Neut % (Auto) (42.2-75.2) % Lymph % (Auto) (20.5-50.1) % Callahan % (Auto) (2-8) % Eos % (Auto) (1.0-3.0) % Baso % (Auto) (0.0-1.0) % D-Dimer, Quantitative 188 (0-400) ng/mL Sodium (136-145) mmol/L Potassium (3.5-5.1) mmol/L Chloride (98-107) mmol/L Carbon Dioxide (21-32) mmol/L Anion Gap (7-13) mEq/L BUN (7-18) mg/dL Creatinine (0.70-1.30) mg/dL Est Cr Clr Drug Dosing mL/min Estimated GFR (MDRD) BUN/Creatinine Ratio (No establ ref range) Glucose (70-99) mg/dL Lactic Acid 1.1 (0.4-2.0) mmol/L Calcium (8.5-10.1) mg/dL Phosphorus (2.6-4.7) mg/dL Magnesium (1.8-2.4) mg/dL Total Bilirubin (0.2-1.0) mg/dL AST (15-37) U/L ALT (16-63) U/L Alkaline Phosphatase (46-116) U/L C-Reactive Protein (0.0-0.9) mg/dL B-Natriuretic Peptide (0-100) pg/ml Total Protein (6.4-8.2) g/dL Albumin (3.4-5.0) g/dL Globulin Albumin/Globulin Ratio SARS-CoV-2 RNA (MUSA) (NEGATIVE) Meds: Medications Generic Name Dose Route Start Last Admin Trade Name Freq PRN Reason Stop Dose Admin Sodium Chloride 10 ml 08/27/21 10:45 08/27/21 10:52 Sodium Chloride 0.9% 10 Ml Syringe FLUSH 10 ml ASDIRECTED PRN Administration Keep Vein Open - Re-Assessments/Exams Free Text/Narrative Re-Assessment/Exam: 08/27/21 12:41 I discussed the labs, exam, and xray findings with pt and informed him he is positive with COVID today. Given his low white count and resp symptoms I will cover him with Levaquin and have him follow up with his primary care provider next week. Departure - Departure Time of Disposition: 12:42 Disposition: Home, Self-Care 01 Condition: Fair Clinical Impression: Pneumonia due to COVID-19 virus - Discharge Information *PRESCRIPTION DRUG MONITORING PROGRAM REVIEWED*: Not Applicable *COPY OF PRESCRIPTION DRUG MONITORING REPORT IN PATIENT KAMILA: Not Applicable Instructions: 10 Things You Can Do to Manage Your COVID-19 Symptoms at Home - [facility] (05/09/2021) Forms: ED Department Discharge Additional Instructions: RX: Levaquin RX: Prednisone Follow up with your [facility] facility next week regarding your ER visit today. Continue to drink plenty of fluids to maintain hydration. If any new symptoms or concerns develop contact your primary care facility or return to the ER. Sepsis Event Note (ED) - Focused Exam Vital Signs: Vital Signs Temp Pulse Resp BP Pulse Ox 08/27/21 11:08 98.1 F 73 18 149/84 H 94 L - My Orders Last 24 Hours: My Active Orders 08/27/21 10:45 Sodium Chloride 0.9% [Saline Flush] 10 ml FLUSH ASDIRECTED PRN Peripheral IV Insertion Adult [OM.PC] Routine - Assessment/Plan Last 24 Hours: My Active Orders 08/27/21 10:45 Sodium Chloride 0.9% [Saline Flush] 10 ml FLUSH ASDIRECTED PRN Peripheral IV Insertion Adult [OM.PC] Routine
[2021-08-27 12:10] LABS: ANION GAP 12.9 mEq/L (7-13); CHLORIDE,CL 100 mmol/L (98-107); SODIUM,NA 138 mmol/L (136-145)
--- NOTE | 2021-08-27 12:34 | CR ---
EXAMINATION: Chest 1V Frontal SEX: Male AGE: 76 years CLINICAL HISTORY: 76-year-old male with cough and shortness of breath (SOB). Note: The patient tested positive for COVID19 virus one month ago and again today. Interpretation: No acute new cardiopulmonary abnormality (comparison CXR's 13 July and 07 August 2021). Chronic asymmetric elevation right hemidiaphragm. Mild left ventricular prominence and curvilinear atheromatous calcifications arch of the ectatic thoracic aorta. No pulmonary vascular congestion, cephalization of flow, alveolar edema or dependent new pleural effusions. No new lung mass or hilar lymphadenopathy. No atelectasis/collapse, new alveolar infiltrate, or peripheral "groundglass" interstitial lung densities. No pneumothorax or pneumomediastinum. No air trapping. No free subdiaphragmatic air. CONCLUSION: No new signs of heart failure, lobar pneumonia, or atelectasis/collapse.
== END 2021-08-27 13:00 | disposition home or self-care (01) ==
LOC: DL.ED 10:38
DX: U07.1 COVID-19 (principal); J12.82 Pneumonia due to coronavirus disease 2019; I10 Essential (primary) hypertension; Z79.899 Other long term (current) drug therapy
CPT/HCPCS: 36415; 71045; 80053; 83605; 83735; 83880; 84100; 85025; 85379; 86140; 99285; U0002

== ENCOUNTER 2021-12-30 14:45 | Emergency (ER) | payer MEDICARE, BC ==
[2021-12-30] MEDS ORDERED: Codeine/Promethazine 10-6.25 MG/5 ML Syrup 5 ML UD Cup PO ONE ×2 (14:46→17:33)
[2021-12-30] MEDS ORDERED: Sodium Chloride 0.9% 10 ML Syringe FLUSH PRN (17:30)
[2021-12-30] MEDS ORDERED: Albuterol/Ipratropium 3.0-0.5 MG/3 ML Neb Soln NEB ONE (17:33)
[2021-12-30 18:56] LABS: ANION GAP 11.4 mEq/L (7-13); CHLORIDE,CL 100 mmol/L (98-107); SODIUM,NA 136 mmol/L (136-145)
[2021-12-30] MEDS ORDERED: methylPREDNISolone Sodium Succinate 125 MG/2 ML SDV IVPUSH ONE (19:24)
[2021-12-30] MEDS ORDERED: methylPREDNISolone Sodium Succinate 125 MG/2 ML SDV IM ONE (19:29)
[2021-12-30] MEDS ORDERED: Codeine/Promethazine 10-6.25 MG/5 ML Syrup 5 ML UD Cup ONE (19:43)
== END 2021-12-30 20:00 | disposition home or self-care (01) ==
LOC: DL.ED 14:45
DX: J20.9 Acute bronchitis, unspecified (principal); J42 Unspecified chronic bronchitis
CPT/HCPCS: 36415; 71045; 80053; 83605; 83880; 84484; 85025; 85379; 86140; 87040; 93005; 94640; 96372; 99285; A9270; J2930; U0002; J7620-GY

== ENCOUNTER 2022-02-18 17:33 | Emergency (ER) | payer MEDICARE, BC ==
[2022-02-18] MEDS ORDERED: Acetaminophen 500 MG Tab PO ONE (17:43)
[2022-02-18 18:23] LABS: ANION GAP 11.8 mEq/L (7-13); CHLORIDE,CL 99 mmol/L (98-107); SODIUM,NA 136 mmol/L (136-145)
[2022-02-18 18:45] LABS: CORONAVIRUS COVID-19 NAA NEGATIVE (NEGATIVE); RESPIRATORY SYNCYTIAL VIR NAA NEGATIVE (NEGATIVE)
[2022-02-18] MEDS ORDERED: Oseltamivir 75 MG Cap PO ONE (18:58)
[2022-02-18] MEDS ORDERED: LORazepam 2 MG/ML SDV IVPUSH ONE (21:43)
== END 2022-02-18 21:58 | disposition home or self-care (01) ==
LOC: DL.ED 17:33
DX: J10.00 Influenza due to other identified influenza virus with unspecified type of pneumonia (principal); I10 Essential (primary) hypertension; Z86.16 Personal history of COVID-19; Z79.899 Other long term (current) drug therapy; Z20.822 Contact with and (suspected) exposure to COVID-19
CPT/HCPCS: 0241U; 36415; 71250; 80053; 83605; 83880; 84484; 85025; 85379; 86140; 87040; 93005; 93010; 99284; 99285-25; A9270-GY

== ENCOUNTER 2024-06-23 15:37 | Emergency (ER) | payer MEDICARE, BC ==
[2024-06-23] MEDS ORDERED: Sodium Chloride 0.9% 10 ML Syringe FLUSH PRN (15:54)
[2024-06-23] MEDS: Ondansetron 4 MG/2 ML SDV IVPUSH ONE (16:20)
[2024-06-23] MEDS: Sodium Chloride 0.9% 1,000 ML IV ONE (16:22)
[2024-06-23 16:23] LABS: BASOPHILS PERCENT AUTO 0.2 % (0.0-1.0); EOSINOPHILS PERCENT AUTO 1.7 % (1.0-3.0); HEMATOCRIT 39.9 % (40.0-54.0); HEMOGLOBIN 13.4 g/dL (14.0-18.0); LYMPHOCYTES PERCENT AUTO 16.6 % (20.5-50.1); MEAN CORPUSCULAR HEMOGLOBIN 30.6 pg (27.0-34.0); MEAN CORPUSCULAR HGB CONC 33.6 g/dL (33.0-35.0); MEAN CORPUSCULAR VOLUME 91.1 fL (80-100); MONOCYTES PERCENT AUTO 8.7 % (2-8); NEUTROPHILS PERCENT AUTO 72.8 % (42.2-75.2); PLATELET COUNT,PLT 155 10^3/uL (150-450); RED BLOOD CELL COUNT 4.38 10^6/uL (4.6-6.2); WHITE BLOOD CELL COUNT,WBC 6.5 10^3/uL (5.0-10.0)
[2024-06-23 16:52] LABS: A/G RATIO 1.7; ALBUMIN 3.8 g/dL (3.4-5.0); ANION GAP 9.6 mEq/L (7-13); BILIRUBIN TOTAL 0.9 mg/dL (0.2-1.0); BUN/CREATININE RATIO 8.4 (No establ ref range); C-REACTIVE PROTEIN 0.92 ng/dL (<=0.50); CALCIUM 8.9 mg/dL (8.5-10.1); CREATININE 1.07 mg/dL (0.70-1.30); EST CRCL DRUG DOSING (CG) 60.44 mL/min; PHOSPHORUS 4.3 mg/dL (2.6-4.7); POTASSIUM,K 4.6 mmol/L (3.5-5.1); PROTEIN TOTAL,TP 6.1 g/dL (6.4-8.2); TSH ULTRASENSITIVE 1.48 uIU/mL (0.36-3.74)
== END 2024-06-23 17:23 | disposition home or self-care (01) ==
LOC: DL.ED 15:37
DX: R11.0 Nausea (principal); I10 Essential (primary) hypertension; Z86.16 Personal history of COVID-19; Z79.899 Other long term (current) drug therapy; Z88.8 Allergy status to other drugs, medicaments and biological substances
CPT/HCPCS: 36415; 80053; 83735; 84100; 84443; 84484; 85025; 86140; 93005; 96374; 99284; J2405; J7030; 93010